=== PATIENT | male | born 2000 | race Two or more races ===

== ENCOUNTER 2023-10-16 15:32 | Emergency (ER) | payer OTHER ==
[~2023-10-16] VITALS: Ht 177.8 cm; Wt 72.6 kg
[2023-10-16] MEDS ORDERED: CEFTRIAXONE SODIUM 2,000 MG VIAL IM ONE (16:45)
[2023-10-16] MEDS ORDERED: KETOROLAC TROMETHAMINE 30 MG VIAL IM ONE (16:45)
[2023-10-16] MEDS ORDERED: CEFTRIAXONE SODIUM 2,000 MG VIAL ONE (16:55)
[2023-10-16] MEDS ORDERED: KETOROLAC TROMETHAMINE 30 MG VIAL ONE (16:55)
[2023-10-16 17:32] LABS: HEMATOCRIT 38.6 % (39.0-48.0); HEMOGLOBIN 12.9 g/dL (13-16.00); MEAN CORPUSCULAR HEMOGLOBIN 25.8 pg (27.00-32.0); MEAN CORPUSCULAR HGB CONC 33.5 g/dl (32.0-36.0); PLATELET COUNT 242 K/uL (150-450); RED BLOOD COUNT 5.01 M/uL (4.00-6.00); RED CELL DISTRIBUTION WIDTH 13.7 % (11.5-14.5)
[2023-10-16 17:34] LABS: ERYTHROCYTE SEDIMENTATION RATE 2 mm/hr
[2023-10-16 17:50] LABS: BILIRUBIN TOTAL 0.27 mg/dL (0.3-1.2); CALCIUM 9.3 mg/dL (8.5-10.1); CREATININE SERUM 1.04 mg/dL (0.70-1.30); GFR 89.3; GLOBULINA 3.1 G/DL (2.4-3.5); POTASSIUM 3.85 mEq/L (3.5-5.1); TOTAL PROTEIN 7.1 gm/dL (6.4-8.2)
[2023-10-16 18:09] LABS: C-REACTIVE PROTEIN 0.38 MG/DL (0.00-0.29)
[2023-10-16] MEDS ORDERED: CEPHALEXIN750 MG PO (19:13)
[2023-10-16] MEDS ORDERED: PEPCID AC20 MG PO (19:13)
== END 2023-10-16 20:20 | disposition home or self-care (01) ==
LOC: ER 15:33
PROVIDERS: General Practice
DX: S80.812A Abrasion, left lower leg, initial encounter (principal); X58.XXXA Exposure to other specified factors, initial encounter; Y93.89 Activity, other specified; Y92.89 Other specified places as the place of occurrence of the external cause; Y99.8 Other external cause status; L08.9 Local infection of the skin and subcutaneous tissue, unspecified